=== PATIENT | male | born 2005 | race Caucasian/White ===

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

== ENCOUNTER 2023-02-14 16:04 | Emergency (ER) | payer BC, MEDICAID, SELFPAY ==
[2023-02-14 16:07] VITALS: BP 156/92; PULSE 88; RESP 18; TEMP 36.8; O2SAT 97; BMI 26.4
[2023-02-14 16:26] VITALS: BP 159/97; PULSE 82; RESP 16; O2SAT 96
--- NOTE | 2023-02-14 16:28 | XRR_ITS ---
PROCEDURE INFORMATION: Exam: XR Chest Exam date and time: 02/14/2023 4:36 PM Age: 17 years old Clinical indication: Pain; Chest pressure; Additional info: Chest pain TECHNIQUE: Imaging protocol: Radiologic exam of the chest. Views: 1 view. COMPARISON: CR XR chest 1V portable [id number] 11/03/2021 8:27 PM FINDINGS: Lungs: Unremarkable. No consolidation. Pleural spaces: Unremarkable. No pleural effusion. No pneumothorax. Heart/Mediastinum: Unremarkable. No cardiomegaly. Bones/joints: Unremarkable. XR/XR chest 1V portable [id number] IMPRESSION: No acute findings.
--- NOTE | 2023-02-14 16:29 | W.ED.CHESTPA ---
Documented by User: JAKE Grace 02/14/23 16:54 HPI - Chest Pain General: Chief Complaint: Chest Pain Stated Complaint: chest pain Time Seen by Provider: 02/14/23 16:07 Source: patient Mode of arrival: EMS Limitations: no limitations History of Present Illness: Patient is a 17-year-old male who presents to ED today with a complaint of chest pain that began about an hour or so ago while he was outside washing vehicles. Patient states this is his third similar episode over the past year. He states one other episode occurred with exertion while the other occurred while at rest. He states pain seems to last for a few hours before subsiding on its own. In between episodes patient is completely asymptomatic. He has not noticed that any form of exertion seems to bring on any type of symptoms. He does not complain of shortness of breath or difficulty breathing. He has not noticed any lower extremity swelling or calf pain. Patient states he has sought emergency evaluation before and told it was nothing and then another time told it was angina . Patient states he is concerned as he had a cousin that at the age of 18 due to heart problems . He states his father had a history of hypertension and had his first KS in his 20s. They state he experienced another KS in his 30s before eventually dying of some type of brain aneurysm in his 40s. complaint: chest pain Onset (ago): hour(s) Timing of current episode: rare Prior episodes: Yes Onset: during exertion Pain location: substernal Pain radiation: none Severity: moderate Quality: sharp Relieving factors: nothing Exacerbating factors: nothing Associated symptoms: Reports no associated symptoms and nausea; Deny abdominal pain, dyspnea, fever(s), palpitations, syncope or vomiting Treatment prior to arrival: none Risk Factors: Coronary artery disease risk factors: hypertension (no prior history but patient is hypertensive upon arrival at 150s/90s) Thoracic aortic dissection risk factors: none Review of Systems Const: Denies: fever(s), chills, body aches, fatigue or malaise Eyes: Denies: change in vision or blurry vision Card: Reports: chest pain; Denies: palpitations, irregular heart rhythm, edema, swelling of feet/ankles, lightheadedness, syncope, pre-syncope, dyspnea on exertion, orthopnea, leg pain with exertion or acrocyanosis Resp: Denies: dyspnea, productive cough or pain on inspiration GI: Reports: nausea; Denies: abdominal pain, vomiting, heartburn or diarrhea : Denies: difficulty urinating or dysuria Musc: Denies: neck pain, back pain, extremity pain, extremity swelling, joint pain, joint swelling, joint redness, joint warmth or limited range of motion Skin/Breast: Denies: rash Neuro: Denies: headache(s), numbness in extremities, weakness in extremities, sensory changes or dizziness PFSH ED PFSH: Social History Smoking and tobacco status: never smoked Second hand smoke exposure: No Adopted: No Physical Exam Const: COMMON NORMALS: no acute distress, average body habitus, patient oriented x3, no limitations, healthy appearing, alert and well nourished GENERAL APPEARANCE: cooperative ORIENTATION/CONSCIOUSNESS: Yes awake, Yes oriented to person, Yes oriented to place and Yes oriented to time HENMT: COMMON NORMALS: normocephalic and atraumatic HEAD & SCALP: normal to inspection, normocephalic and atraumatic Neck/C-Spine: COMMON NORMALS: full ROM, no lymphadenopathy, supple and no meningeal signs Chest: COMMONS NORMALS: normal inspection of the chest and normal palpation of entire chest wall Resp: COMMON NORMALS: normal respiratory effort and clear to auscultation bilaterally AUSCULTATION: clear to auscultation bilaterally Cardio: COMMON NORMALS: regular rate and regular rhythm RATE: regular rate RHYTHM: regular rhythm GI: COMMON NORMALS: Normal to inspection, nondistended, normoactive bowel sounds present, Soft to palpation, non-tender, No hepatosplenomegaly present and no masses PALPATION: Yes Soft to palpation and Yes No hepatosplenomegaly present Back/Pelvis: COMMON NORMALS: thoracic and lumbar spine normal to inspection, no thoracic nor lumbar tenderness and thoraco-lumbar ROM normal Extremity: COMMON NORMALS: normal to inspection GENERAL: Yes normal exam except as noted Neuro: RAMANDEEP COMA SCALE: document GCS findings [place] coma scale eye opening: Spontaneous Ramandeep coma scale verbal response: Orientated [place] coma scale motor response: [place]bey commands Ramandeep coma scale total score: 15 COMMON NORMALS: patient oriented x3 SENSORIUM/ORIENTATION: Yes alert, Yes oriented to person, Yes oriented to place and Yes oriented to time MENINGEAL SIGNS: Yes no meningeal signs MOTOR EXAM: 5/5 motor strength present throughout Skin: COMMON NORMALS: no rashes or lesions noted GENERAL SKIN EXAM: no rashes or lesions noted Course Vital Signs: Vital signs: Vital Signs Temperature 98.3 F 02/14/23 16:07 Pulse Rate 71 02/14/23 17:52 Respiratory Rate 16 02/14/23 17:52 Blood Pressure 143/89 02/14/23 17:52 Pulse Oximetry 93 02/14/23 17:52 Oxygen Delivery Me thod Room Air 02/14/23 17:52 MDM - Chest Pain Lab Data 02/14/23 16:12 02/14/23 16:12 Radiology Impressions Chest X-Ray 02/14/23 16:28 IMPRESSION: No acute findings. Laboratory Results WBC 9.5 10^3/uL (4.5-13.0) 02/14/23 16:12 RBC 5.09 10^6/uL (4.1-5.3) 02/14/23 16:12 Hgb 14.7 g/dL (11.7-16.6) 02/14/23 16:12 Hct 45.1 % (42.0-52.0) 02/14/23 16:12 MCV 88.6 fl (80-94) 02/14/23 16:12 MCH 28.9 pg (28.0-34.0) 02/14/23 16:12 MCHC 32.6 g/dL (30.0-36.0) 02/14/23 16:12 RDW 13.8 % (12.1-15.1) 02/14/23 16:12 Plt Count 327 10^3/cmm (130-400) 02/14/23 16:12 MPV 10.5 fL (7.4-10.4) H 02/14/23 16:12 Neut % (Auto) 47.1 % 02/14/23 16:12 Lymph % (Auto) 38.7 % 02/14/23 16:12 [place] % (Auto) 11.4 % 02/14/23 16:12 Eos % (Auto) 2.3 % 02/14/23 16:12 Baso % (Auto) 0.4 % 02/14/23 16:12 Neut # (Auto) 4.48 10^3/uL (1.8-8.0) 02/14/23 16:12 Lymph # (Auto) 3.7 10^3/uL (1.5-6.5) 02/14/23 16:12 [place] # (Auto) 1.1 10^3/uL (0.2-0.9) H 02/14/23 16:12 Eos # (Auto) 0.2 10^3/uL (0.0-0.8) 02/14/23 16:12 Baso # (Auto) 0.0 10^3/uL (0.0-0.1) 02/14/23 16:12 Nucleated RBC % (auto) 0 % 02/14/23 16:12 Nucleated RBCs # 0.0 /100WBC 02/14/23 16:12 Sodium 140 mmol/L (136-145) 02/14/23 16:12 Potassium 4.1 mmol/L (3.5-5.1) 02/14/23 16:12 Chloride 103 mmol/L (98-107) 02/14/23 16:12 Carbon Dioxide 25 mmol/L (22-29) 02/14/23 16:12 Anion Gap 16.1 (5-19) 02/14/23 16:12 BUN 16 mg/dL (6-20) 02/14/23 16:12 Creatinine 0.7 mg/dL (0.7-1.2) 02/14/23 16:12 GFR Calculation 145.3 mL/min (90-130) H 02/14/23 16:12 Glucose 87 mg/dL (65-115) 02/14/23 16:12 Calculated Osmolality 291 mOsm/kg (285-295) 02/14/23 16:12 Calcium 9.7 mg/dL (8.5-10.5) 02/14/23 16:12 Total Bilirubin 0.9 mg/dL (0.15-1.2) 02/14/23 16:12 AST 28 U/L (0-40) 02/14/23 16:12 ALT 41 U/L (0-41) 02/14/23 16:12 Alkaline Phosphatase 91 U/L (40-130) 02/14/23 16:12 Troponin T Baseline 6 ng/L (0-15) 02/14/23 16:12 Troponin T 120 Minute 6.03 ng/L (0-15) 02/14/23 17:57 Delta Troponin T 0.03 ABS# (0-10) 02/14/23 17:57 Total Protein 7.6 g/dL (6.6-8.7) 02/14/23 16:12 Albumin 4.8 g/dL (3.5-5.2) 02/14/23 16:12 Globulin 2.8 g/dL (1.3-4.6) 02/14/23 16:12 Discharge Plan Discharge Patient Disposition: Home Clinical Impression: Chest pain Qualifiers: Chest pain type: unspecified Qualified Code(s): R07.9 - Chest pain, unspecified Condition: Stable Prescriptions: No Action No Known Home Medications Discharge Orders: Discharge ED (Routine); Ordered 02/14/23 Ordered By: Rudy Deleon Referrals: MITCHEL Lee FNP [Primary Care Provider] - Discharge Diet: Usual diet Discharge Activity: Increase activity as tolerated Patient Instructions: Chest Pain (ED) Activity Restrictions/Additional Instructions: Healthy diet and activity. Follow-up with primary care in 1 week for recheck of blood pressure. Keep appointment for cardiology follow-up in 1 month. Return to ED for new concerns. Sign Out Sign Out Data: Patient Sign Out occurred on 02/14/23 at 17:15. Patient's care was discussed, and care was transferred from to Rudy Deleon. Coding Level of Care Code ED Architectural Job Captain for Chg Fwd Documented by User: YULIA Yap 02/14/23 18:39 HPI - Chest Pain General: Chief Complaint: Chest Pain Stated Complaint: chest pain Time Seen by Provider: 02/14/23 16:07 [facility] ED PFSH: Social History Smoking and tobacco status: never smoked Second hand smoke exposure: No Adopted: No Physical Exam Neuro: RAMANDEEP COMA SCALE: document GCS findings Ramandeep coma scale total score: 15 Course Vital Signs: Vital signs: Vital Signs Temperature 98.3 F 02/14/23 16:07 Pulse Rate 71 02/14/23 17:52 Respiratory Rate 16 02/14/23 17:52 Blood Pressure 143/89 02/14/23 17:52 Pulse Oximetry 93 02/14/23 17:52 Oxygen Delivery Me thod Room Air 02/14/23 17:52 MDM - Chest Pain Medical Decision Making 17-year-old male patient comes in today for complaints of chest discomfort while at work. Patient appears nontoxic. Patient appears in no pain. Patient does have a family history of father with malignant hypertension and early at 43. Mother reports that it was due to an aneurysm. On exam respirations are even lungs are clear to auscultation. Heart rates regular in the 80s. Vital signs note a blood pressure in the 150s systolic. Differential diagnosis includes angina, ACS, uncontrolled hypertension. Laboratory values were unremarkable. Chest x-ray was normal. No signs of severe illness or injury is noted. Reviewed exam with patient with recommendations for treatment and follow-up. Patient reported understanding. Lab Data 02/14/23 16:12 02/14/23 16:12 Radiology Impressions Chest X-Ray 02/14/23 16:28 IMPRESSION: No acute findings. Laboratory Results WBC 9.5 10^3/uL (4.5-13.0) 02/14/23 16:12 RBC 5.09 10^6/uL (4.1-5.3) 02/14/23 16:12 Hgb 14.7 g/dL (11.7-16.6) 02/14/23 16:12 Hct 45.1 % (42.0-52.0) 02/14/23 16:12 MCV 88.6 fl (80-94) 02/14/23 16:12 MCH 28.9 pg (28.0-34.0) 02/14/23 16:12 MCHC 32.6 g/dL (30.0-36.0) 02/14/23 16:12 RDW 13.8 % (12.1-15.1) 02/14/23 16:12 Plt Count 327 10^3/cmm (130-400) 02/14/23 16:12 MPV 10.5 fL (7.4-10.4) H 02/14/23 16:12 Neut % (Auto) 47.1 % 02/14/23 16:12 Lymph % (Auto) 38.7 % 02/14/23 16:12 [place] % (Auto) 11.4 % 02/14/23 16:12 Eos % (Auto) 2.3 % 02/14/23 16:12 Baso % (Auto) 0.4 % 02/14/23 16:12 Neut # (Auto) 4.48 10^3/uL (1.8-8.0) 02/14/23 16:12 Lymph # (Auto) 3.7 10^3/uL (1.5-6.5) 02/14/23 16:12 [place] # (Auto) 1.1 10^3/uL (0.2-0.9) H 02/14/23 16:12 Eos # (Auto) 0.2 10^3/uL (0.0-0.8) 02/14/23 16:12 Baso # (Auto) 0.0 10^3/uL (0.0-0.1) 02/14/23 16:12 Nucleated RBC % (auto) 0 % 02/14/23 16:12 Nucleated RBCs # 0.0 /100WBC 02/14/23 16:12 Sodium 140 mmol/L (136-145) 02/14/23 16:12 Potassium 4.1 mmol/L (3.5-5.1) 02/14/23 16:12 Chloride 103 mmol/L (98-107) 02/14/23 16:12 Carbon Dioxide 25 mmol/L (22-29) 02/14/23 16:12 Anion Gap 16.1 (5-19) 02/14/23 16:12 BUN 16 mg/dL (6-20) 02/14/23 16:12 Creatinine 0.7 mg/dL (0.7-1.2) 02/14/23 16:12 GFR Calculation 145.3 mL/min (90-130) H 02/14/23 16:12 Glucose 87 mg/dL (65-115) 02/14/23 16:12 Calculated Osmolality 291 mOsm/kg (285-295) 02/14/23 16:12 Calcium 9.7 mg/dL (8.5-10.5) 02/14/23 16:12 Total Bilirubin 0.9 mg/dL (0.15-1.2) 02/14/23 16:12 AST 28 U/L (0-40) 02/14/23 16:12 ALT 41 U/L (0-41) 02/14/23 16:12 Alkaline Phosphatase 91 U/L (40-130) 02/14/23 16:12 Troponin T Baseline 6 ng/L (0-15) 02/14/23 16:12 Troponin T 120 Minute 6.03 ng/L (0-15) 02/14/23 17:57 Delta Troponin T 0.03 ABS# (0-10) 02/14/23 17:57 Total Protein 7.6 g/dL (6.6-8.7) 02/14/23 16:12 Albumin 4.8 g/dL (3.5-5.2) 02/14/23 16:12 Globulin 2.8 g/dL (1.3-4.6) 02/14/23 16:12 Discharge Plan Discharge Patient Disposition: Home Clinical Impression: Chest pain Qualifiers: Chest pain type: unspecified Qualified Code(s): R07.9 - Chest pain, unspecified Condition: Stable Prescriptions: No Action No Known Home Medications Discharge Orders: Discharge ED (Routine); Ordered 02/14/23 Ordered By: Rudy Deleon Referrals: MITCHEL Lee, CREAM RIPENER [Primary Care Provider] - Discharge Diet: Usual diet Discharge Activity: Increase activity as tolerated Patient Instructions: Chest Pain (ED) Activity Restrictions/Additional Instructions: Healthy diet and activity. Follow-up with primary care in 1 week for recheck of blood pressure. Keep appointment for cardiology follow-up in 1 month. Return to ED for new concerns. Sign Out Sign Out Data: Patient Sign Out occurred on 02/14/23 at 17:15. Patient's care was discussed, and care was transferred from to Rudy Deleon. Coding Level of Care Code ED Architectural Job Captain for Melina León
[2023-02-14 17:06] VITALS: BP 139/83; PULSE 82; RESP 16; O2SAT 98
[2023-02-14 17:12] LABS: Basophils % 0.4 %; Eosinophils # 0.2 10^3/uL (0.0-0.8); Eosinophils % 2.3 %; Hematocrit 45.1 % (42.0-52.0); Hemoglobin 14.7 g/dL (11.7-16.6); Lymphocytes # 3.7 10^3/uL (1.5-6.5); Lymphocytes % 38.7 %; Mean Corpuscular HGB Conc 32.6 g/dL (30.0-36.0); Mean Corpuscular Hemoglobin 28.9 pg (28.0-34.0); Mean Corpuscular Volume 88.6 fl (80-94); Mean Platelet Volume 10.5 fL (7.4-10.4); Monocytes # 1.1 10^3/uL (0.2-0.9); Monocytes % 11.4 %; Neutrophils # 4.48 10^3/uL (1.8-8.0); Neutrophils % 47.1 %; Nucleated Red Blood Cells % 0 %; Platelet Count 327 10^3/cmm (130-400); Red Blood Count 5.09 10^6/uL (4.1-5.3); Red Cell Distribution Width 13.8 % (12.1-15.1); White Blood Count 9.5 10^3/uL (4.5-13.0)
[2023-02-14 17:21] LABS: Troponin(5th) Baseline 6 ng/L (0-15)
[2023-02-14 17:23] LABS: Alanine Aminotransferase 41 U/L (0-41); Albumin Level 4.8 g/dL (3.5-5.2); Alkaline Phosphatase 91 U/L (40-130); Anion Gap 16.1 (5-19); Aspartate Amino Transferase 28 U/L (0-40); Blood Urea Nitrogen 16 mg/dL (6-20); Calcium 9.7 mg/dL (8.5-10.5); Carbon Dioxide 25 mmol/L (22-29); Chloride 103 mmol/L (98-107); Globulin 2.8 g/dL (1.3-4.6); Glomerular Filtration Rate 145.3 mL/min (90-130); Glucose 87 mg/dL (65-115); Osmolality Calculated 291 mOsm/kg (285-295); Potassium 4.1 mmol/L (3.5-5.1); Sodium 140 mmol/L (136-145); Total Bilirubin 0.9 mg/dL (0.15-1.2); Total Protein 7.6 g/dL (6.6-8.7)
--- NOTE | 2023-02-14 17:28 | ECG_ITS ---
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 Measurements Intervals [place] Rate: 74 P: 48 [place]: 241 QRS: 48 QRSD: 127 T: 32 QT: 354 QTc: 395 Interpretive Statements SINUS RHYTHM WITH SINUS ARRHYTHMIA WITH FIRST DEGREE AV BLOCK POSSIBLE RIGHT VENTRICULAR CONDUCTION DELAY [RSR (QR) IN V1/V2] NONSPECIFIC ST & T-WAVE ABNORMALITY Compared to ECG 11/04/2021 00:21:49 First degree AV block now present T-wave abnormality now present Electronically Signed On 02-14-2023 18:28:14 CDT by Fercho Carrillo M.D. [id number]
[2023-02-14 17:52] VITALS: BP 143/89; PULSE 71; RESP 16; O2SAT 93
[2023-02-14 18:27] LABS: Troponin 5 2HR 6.03 ng/L (0-15)
[2023-02-14 18:30] LABS: Troponin 5 2HR Delta 0.03 ABS# (0-10)
[2023-02-14 18:47] VITALS: BP 143/89; PULSE 71; RESP 16; O2SAT 93
--- NOTE | 2023-02-15 08:21 | DCPLANNER ---
Addendum entered by Geraldine Romo 04/07/23 07:24: patient had a follow up appointment scheduled with heart care - patient did not attend appointment Addendum entered by Geraldine Romo 02/22/23 10:29: Patient has a follow up appointment scheduled for Wednesday, March 29, 2023 at 11:[address] Swanson at [facility]. Original Note: technical sales support manager had message to schedule a follow up appointment for patient with cardiology. technical sales support manager sent patients information to the front office staff at [facility]. Patients information will be printed and reviewed. Clinic will call patient with appointment information.
== END 2023-02-14 18:49 | disposition home or self-care (01) ==
PROVIDERS: Physician Assistant; Emergency Provider Nurse Practitioner Family; PCP Nurse Practitioner Family
DX: R07.2 Precordial pain (principal)
CPT/HCPCS: 36415; 71045; 80053; 84484; 85025; 93005; 99285